=== PATIENT | female | born 1960 | race Caucasian/White ===

== ENCOUNTER 2016-12-07 17:33 | Emergency (ER) | payer OTHER | END 2016-12-07 19:41 | disposition other institution (70) | LOC: ER 17:33 | DX: J18.9 Pneumonia, unspecified organism (principal); R53.1 Weakness; R00.0 Tachycardia, unspecified; J44.9 Chronic obstructive pulmonary disease, unspecified; F41.9 Anxiety disorder, unspecified; G89.29 Other chronic pain; M54.9 Dorsalgia, unspecified; K21.9 Gastro-esophageal reflux disease without esophagitis; I10 Essential (primary) hypertension; E03.9 Hypothyroidism, unspecified; F17.210 Nicotine dependence, cigarettes, uncomplicated; F32.9 Major depressive disorder, single episode, unspecified | CPT/HCPCS: 99284-25 ==

== ENCOUNTER 2016-12-07 17:33 | Inpatient (IN) | payer OTHER ==
[2016-12-07 18:45] LABS: BASO # 0.1 10_X3_uL (0.0-0.1); BASO % 0.4 % (0.1-1.2); EOS % 0.1 % (0.7-5.8); GRAN # 12.4 10_X3_uL (1.6-6.1); GRAN % 72.8 % (34.0-71.1); HEMATOCRIT 40.3 % (34-45); HEMOGLOBIN 14.2 g/dL (11.2-15.7); LYMPH # 1.8 10_X3_uL (1.2-3.7); LYMPH % 10.6 % (19.3-51.7); MEAN CORPUSCULAR HEMOGLOBIN 32.1 pg (27.0-33.0); MEAN CORPUSCULAR HGB CONC 35.2 g/dL (32.0-36.0); MEAN PLATELET VOLUME 12.9 fl (7.5-11.5); MONO # 2.7 10_X3_uL (0.2-0.9); MONO % 16.1 % (4.7-12.5); PLATELET COUNT 164 x10_3/uL (182-369); RED BLOOD COUNT 4.43 x10_6/uL (3.9-5.2); RED CELL DISTRIBUTION WIDTH 13.1 % (11.7-14.4); WHITE BLOOD COUNT 17.1 x10_3/uL (4.0-10.0)
[2016-12-07 18:56] LABS: BLOOD UREA NITROGEN 10 mg/dL (7-18); CALCIUM 9.7 mg/dL (8.7-10.7); CARBON DIOXIDE 20 mmol/L (21-32); CREATININE 0.5 mg/dL (0.6-1.3); GLUCOSE,RANDOM 130 mg/dL (70-99); POTASSIUM 3.2 mmol/L (3.5-5.1); SODIUM 131 mmol/L (136-145)
[2016-12-08 01:52] LABS: PH,URINE 6.5 (5.0 - 9.0); URINE BILIRUBIN NEGATIVE (NEGATIVE); URINE BLOOD 3+ (NEGATIVE); URINE GLUCOSE (UA) NORMAL (NORMAL); URINE KETONE 3+ (NEGATIVE); URINE LEUKOCYTE ESTERASE TRACE (NEGATIVE); URINE NITRATE NEGATIVE (NEGATIVE); URINE PROTEIN 1+ (NEGATIVE)
[2016-12-08 02:06] LABS: URINE BACTERIA FEW (NONE SEEN); URINE MUCUS TRACE; URINE RBC >20 /[HPF] (0-2); URINE SQUAMOUS EPITHELIAL CELL 0-10 /[HPF] (NONE SEEN)
[2016-12-08 16:14] LABS: BLOOD UREA NITROGEN 10 mg/dL (7-18); CALCIUM 8.7 mg/dL (8.7-10.7); CARBON DIOXIDE 23 mmol/L (21-32); CREATININE < 0.5 mg/dL (0.6-1.3); GLUCOSE,RANDOM 222 mg/dL (70-99); MAGNESIUM 2.2 mg/dL (1.8-2.4); POTASSIUM 3.3 mmol/L (3.5-5.1); SODIUM 141 mmol/L (136-145)
[2016-12-08 16:44] LABS: HEMATOCRIT 33.2 % (34-45); HEMOGLOBIN 11.5 g/dL (11.2-15.7); MEAN CORPUSCULAR HEMOGLOBIN 32.4 pg (27.0-33.0); MEAN CORPUSCULAR HGB CONC 34.6 g/dL (32.0-36.0); MEAN CORPUSCULAR VOLUME 93.5 fL (79-95); MEAN PLATELET VOLUME 13.1 fl (7.5-11.5); RED BLOOD COUNT 3.55 x10_6/uL (3.9-5.2); RED CELL DISTRIBUTION WIDTH 13.1 % (11.7-14.4); WHITE BLOOD COUNT 9.2 x10_3/uL (4.0-10.0)
[2016-12-09 07:12] LABS: HEMATOCRIT 33.7 % (34-45); HEMOGLOBIN 11.4 g/dL (11.2-15.7); MEAN CORPUSCULAR HEMOGLOBIN 31.8 pg (27.0-33.0); MEAN CORPUSCULAR HGB CONC 33.8 g/dL (32.0-36.0); MEAN CORPUSCULAR VOLUME 93.9 fL (79-95); MEAN PLATELET VOLUME 12.7 fl (7.5-11.5); RED BLOOD COUNT 3.59 x10_6/uL (3.9-5.2); RED CELL DISTRIBUTION WIDTH 13.5 % (11.7-14.4); WHITE BLOOD COUNT 10.8 x10_3/uL (4.0-10.0)
[2016-12-09 07:28] LABS: AHDL CHOLESTEROL 22 mg/dL (>40); ALBUMIN 3.1 gm/dL (3.4-5.0); ALKALINE PHOSPHATASE 53 U/L (50-136); ALT/SGPT 11 U/L (3.5-33.9); AST/SGOT 15 U/L (7.04-26.96); BLOOD UREA NITROGEN 10 mg/dL (7-18); CALCIUM 8.6 mg/dL (8.7-10.7); CARBON DIOXIDE 19 mmol/L (21-32); CHOLESTEROL 207 mg/dL (0-200); CREATININE < 0.5 mg/dL (0.6-1.3); GLUCOSE,RANDOM 137 mg/dL (70-99); LDL CHOLESTEROL 145 mg/dL (0-99); POTASSIUM 3.9 mmol/L (3.5-5.1); SODIUM 144 mmol/L (136-145); TOTAL PROTEIN 5.9 gm/dL (6.4-8.2); TRIGLYCERIDES 138 mg/dL (30-200)
[2016-12-09 07:31] LABS: BILIRUBIN,TOTAL < 0.15 mg/dL (0.0-1.0)
[2016-12-10 07:39] LABS: HEMATOCRIT 32.8 % (34-45); HEMOGLOBIN 10.7 g/dL (11.2-15.7); MEAN CORPUSCULAR HEMOGLOBIN 31.4 pg (27.0-33.0); MEAN CORPUSCULAR HGB CONC 32.6 g/dL (32.0-36.0); MEAN CORPUSCULAR VOLUME 96.2 fL (79-95); MEAN PLATELET VOLUME 12.4 fl (7.5-11.5); RED BLOOD COUNT 3.41 x10_6/uL (3.9-5.2); RED CELL DISTRIBUTION WIDTH 13.5 % (11.7-14.4); WHITE BLOOD COUNT 9.8 x10_3/uL (4.0-10.0)
[2016-12-10 07:53] LABS: BLOOD UREA NITROGEN 9 mg/dL (7-18); CALCIUM 8.6 mg/dL (8.7-10.7); CARBON DIOXIDE 21 mmol/L (21-32); CREATININE < 0.5 mg/dL (0.6-1.3); GLUCOSE,RANDOM 93 mg/dL (70-99); POTASSIUM 3.4 mmol/L (3.5-5.1); SODIUM 146 mmol/L (136-145)
[2016-12-11 07:19] LABS: HEMATOCRIT 35.5 % (34-45); HEMOGLOBIN 11.4 g/dL (11.2-15.7); MEAN CORPUSCULAR HEMOGLOBIN 30.9 pg (27.0-33.0); MEAN CORPUSCULAR HGB CONC 32.1 g/dL (32.0-36.0); MEAN CORPUSCULAR VOLUME 96.2 fL (79-95); RED BLOOD COUNT 3.69 x10_6/uL (3.9-5.2); RED CELL DISTRIBUTION WIDTH 13.5 % (11.7-14.4); WHITE BLOOD COUNT 10.4 x10_3/uL (4.0-10.0)
[2016-12-11 07:35] LABS: BLOOD UREA NITROGEN 11 mg/dL (7-18); CALCIUM 8.9 mg/dL (8.7-10.7); CARBON DIOXIDE 25 mmol/L (21-32); CREATININE < 0.5 mg/dL (0.6-1.3); GLUCOSE,RANDOM 78 mg/dL (70-99); POTASSIUM 3.7 mmol/L (3.5-5.1); SODIUM 142 mmol/L (136-145)
== END 2016-12-11 12:30 | disposition home or self-care (01) | DRG 871 ==
LOC: ER 17:33 → MS 19:41
PROVIDERS: Family Medicine; General Practice; ADMIT Family Medicine
DX: A41.9 Sepsis, unspecified organism (principal); J18.9 Pneumonia, unspecified organism; N39.0 Urinary tract infection, site not specified; E87.1 Hypo-osmolality and hyponatremia; E87.6 Hypokalemia; R11.0 Nausea; I34.1 Nonrheumatic mitral (valve) prolapse; E03.9 Hypothyroidism, unspecified; M19.90 Unspecified osteoarthritis, unspecified site; F17.210 Nicotine dependence, cigarettes, uncomplicated; F41.9 Anxiety disorder, unspecified; R51 Headache; J44.9 Chronic obstructive pulmonary disease, unspecified; J45.909 Unspecified asthma, uncomplicated; M32.9 Systemic lupus erythematosus, unspecified; Z83.3 Family history of diabetes mellitus; Z80.9 Family history of malignant neoplasm, unspecified; R19.7 Diarrhea, unspecified; Z78.0 Asymptomatic menopausal state; Z98.890 Other specified postprocedural states; Z79.899 Other long term (current) drug therapy; Z79.82 Long term (current) use of aspirin; R00.0 Tachycardia, unspecified; I95.9 Hypotension, unspecified
CPT/HCPCS: 36415; 71020; 80048; 80053; 80061; 81001; 83036; 83605; 83735; 84443; 85025; 86738; 87040; 87086; 87324; 87400; 87449; 94640; 94664; 96365; 96375; 99070; 99284-25; J2930; J7050